=== PATIENT | male | born 1990 | race Caucasian/White ===

== ENCOUNTER 2018-02-26 17:19 | Emergency (ER) | payer BC ==
[~2018-02-26] VITALS: Ht 185.4 cm; Wt 120.0 kg
[2018-02-26 17:21] VITALS: BP 137/80; PULSE 65; RESP 16; TEMP 98.7; O2SAT 100
--- NOTE | 2018-02-26 18:35 | PD ---
HPI Chief Complaint: Abdominal Pain Time Seen by Provider: 18:18 Travel History International Travel<30 days: No Contact w/Intl Traveler<30days: No Traveled to known affect area: No History of Present Illness HPI This 27-year-old male says he been having some right upper quadrant pain for about 3 days. The pain is sometimes quite severe but at times it does not seem to bed. He was quite bad this morning but seems to be subsiding a bit he has woken him up at night. He cannot relate it to eating. There is been no vomiting or diarrhea. He says his appetite seems less than usual. Does not recall having this pain before. He has had some mild left mid abdominal pain off and on for the past few months. There is been no vomiting or diarrhea. He is on no medications. He is generally healthy. Comes from [facility] Social History Tobacco Use: No Allergies-Medications (Allergen,Severity, Reaction): Coded Allergies: No Known Allergies (Unverified , 02/26/18) Reported Meds & Prescriptions Reported Meds & Active Scripts Active Magnesium Citrate 100 Mg Tab 100 Mg PO DAILY PRN Miralax Powder (Polyethylene Glycol 3350 Powder) 17 Gm Powd 17 Gm PO DAILY Mix and dissolve one measuring cap-ful (17 grams) in water or juice. Review of Systems General / Constitutional: No: Fever, Chills Eyes: No: Diploplia, Blurred Vision HENT: No: Headaches, Vertigo Cardiovascular: No: Chest Pain or Discomfort, Palpitations Respiratory: No: Cough, Shortness of Breath Gastrointestinal: Positive: Abdominal Pain Genitourinary: No: Urgency, Frequency Musculoskeletal: No: Myalgias, Arthralgias Neurologic: No: Weakness, Dizziness Psychiatric: No: Anxiety, Depression Endocrine: No: Heat Intolerance Hematologic/Lymphatic: No: Easy Bruising Physical Exam Narrative GENERAL: Well-developed male SKIN: Focused skin assessment warm/dry. HEAD: Atraumatic. Normocephalic. EYES: Pupils equal and round. No scleral icterus. No injection or drainage. ENT: No nasal bleeding or discharge. Mucous membranes pink and moist. NECK: Trachea midline. No JVD. CARDIOVASCULAR: Regular rate and rhythm. No murmur appreciated. RESPIRATORY: No accessory muscle use. Clear to auscultation. Breath sounds equal bilaterally. GASTROINTESTINAL: Abdomen soft, there is right upper quadrant tenderness without guarding or rigidity, nondistended. Hepatic and splenic margins not palpable. MUSCULOSKELETAL: No obvious deformities. No clubbing. No cyanosis. No edema. NEUROLOGICAL: Awake and alert. No obvious cranial nerve deficits. Motor grossly within normal limits. Normal speech. PSYCHIATRIC: Appropriate mood and affect; insight and judgment normal. Data Data Last Documented VS Vital Signs Date Time Temp Pulse Resp B/P (MAP) Pulse Ox O2 Delivery O2 Flow Rate FiO2 02/26/18 22:02 78 16 132/78 (96) 100 02/26/18 20:37 Room Air 02/26/18 17:21 98.7 Orders Orders Complete Blood Count With Diff (02/26/18 18:28) Comprehensive Metabolic Panel (02/26/18 18:28) Urinalysis - C+S If Indicated (02/26/18 18:28) Us Abdomen Gallbladder (02/26/18 18:28) Famotidine Inj (Pepcid Inj) (02/26/18 20:00) Al-Mag Hy-Si 40-40-4 Mg/Ml Liq (Mag-Al P (02/26/18 20:00) Lidocaine 2% Viscous (Xylocaine 2% Visco (02/26/18 20:00) Abdomen, Flat & Upright (02/26/18 ) Ed Discharge Order (02/26/18 21:37) Labs Laboratory Tests Test 02/26/18 18:40 02/26/18 19:16 White Blood Count 9.2 TH/MM3 Red Blood Count 4.96 MIL/MM3 Hemoglobin 15.0 GM/DL Hematocrit 43.5 % Mean Corpuscular Volume 87.7 FL Mean Corpuscular Hemoglobin 30.3 PG Mean Corpuscular Hemoglobin Concent 34.5 % Red Cell Distribution Width 12.6 % Platelet Count 278 TH/MM3 Mean Platelet Volume 8.1 FL Neutrophils (%) (Auto) 67.6 % Lymphocytes (%) (Auto) 24.1 % Monocytes (%) (Auto) 5.9 % Eosinophils (%) (Auto) 1.2 % Basophils (%) (Auto) 1.2 % Neutrophils # (Auto) 6.3 TH/MM3 Lymphocytes # (Auto) 2.2 TH/MM3 Monocytes # (Auto) 0.5 TH/MM3 Eosinophils # (Auto) 0.1 TH/MM3 Basophils # (Auto) 0.1 TH/MM3 CBC Comment DIFF FINAL Differential Comment Blood Urea Nitrogen 15 MG/DL Creatinine 0.78 MG/DL Random Glucose 90 MG/DL Total Protein 8.3 GM/DL Albumin 4.4 GM/DL Calcium Level 9.4 MG/DL Alkaline Phosphatase 79 U/L Aspartate Amino Transf (AST/SGOT) 25 U/L Alanine Aminotransferase (ALT/SGPT) 46 U/L Total Bilirubin 0.6 MG/DL Sodium Level 140 MEQ/L Potassium Level 3.8 MEQ/L Chloride Level 106 MEQ/L Carbon Dioxide Level 28.0 MEQ/L Anion Gap 6 MEQ/L Estimat Glomerular Filtration Rate 121 ML/MIN Urine Color YELLOW Urine Turbidity CLEAR Urine pH 6.0 Urine Specific [place] 1.010 Urine Protein NEG mg/dL Urine Glucose (UA) NEG mg/dL Urine Ketones NEG mg/dL Urine Occult Blood NEG Urine Nitrite NEG Urine Bilirubin NEG Urine Urobilinogen 0.2 MG/DL Urine Leukocyte Esterase NEG Urine RBC 0-3 /hpf Urine WBC 0-2 /hpf Urine Bacteria NONE /hpf Microscopic Urinalysis Comment CULT NOT INDICATED MDM Medical Decision Making Medical Screen Exam Complete: Yes Emergency Medical Condition: Yes Medical Record Reviewed: Yes Differential Diagnosis Differential includes cholelithiasis, cholecystitis, nonspecific abdominal pain Narrative Course I have ordered blood work and an ultrasound of the right upper quadrant to assess the etiology of his pain. Diagnosis Primary Impression: Abdominal pain Scripts Magnesium Citrate (Magnesium Citrate) 100 Mg Tab 100 MG PO DAILY Y for CONSTIPATION, #6 TAB 0 Refills Prov: Cisco Barba MD 02/26/18 Polyethylene Glycol 3350 Powder (Miralax Powder) 17 Gm Powd 17 GM PO DAILY for Constipation, #1 CAN 0 Refills Mix and dissolve one measuring cap-ful (17 grams) in water or juice. Prov: Cisco Barba MD 02/26/18 John Najera MD February 26, 2018 18:35
[2018-02-26 18:51] LABS: AUTOMATED NEUTROPHIL # 6.3 TH/MM3 (1.8-7.7); BASOPHIL # 0.1 TH/MM3 (0-0.2); BASOPHIL % 1.2 % (0.0-2.0); EOSINOPHIL # 0.1 TH/MM3 (0-0.4); EOSINOPHIL % 1.2 % (0.0-4.0); HEMATOCRIT 43.5 % (39.0-51.0); LYMPH % 24.1 % (9.0-44.0); LYMPHOCYTE # 2.2 TH/MM3 (1.0-4.8); MEAN CELL VOLUME 87.7 FL (80.0-100.0); MEAN CORPUSCULAR HEMOGLOBIN 30.3 PG (27.0-34.0); MEAN CORPUSCULAR HGB CONC 34.5 % (32.0-36.0); MEAN PLATELET VOLUME 8.1 FL (7.0-11.0); MONO % 5.9 % (0.0-8.0); MONOCYTE # 0.5 TH/MM3 (0-0.9); NEUT % 67.6 % (16.0-70.0); PLATELET COUNT 278 TH/MM3 (150-450); RED BLOOD COUNT 4.96 MIL/MM3 (4.50-5.90); RED CELL DISTRIBUTION WIDTH 12.6 % (11.6-17.2); WHITE BLOOD COUNT 9.2 TH/MM3 (4.0-11.0)
[2018-02-26 19:00] LABS: CHLORIDE 106 MEQ/L (98-107); SODIUM (NA) 140 MEQ/L (136-145)
[2018-02-26 19:04] LABS: CALCIUM 9.4 MG/DL (8.5-10.1)
[2018-02-26 19:05] LABS: ALBUMIN 4.4 GM/DL (3.4-5.0); BLOOD UREA NITROGEN 15 MG/DL (7-18); GLUCOSE,RANDOM 90 MG/DL (74-106)
[2018-02-26 19:08] LABS: ALT (GPT) 46 U/L (12-78); AST (GOT) 25 U/L (15-37); CREATININE 0.78 MG/DL (0.60-1.30); GLOMERULAR FILTRATION RATE 121 ML/MIN (>89)
[2018-02-26 19:09] LABS: TOTAL BILIRUBIN ADULT 0.6 MG/DL (0.2-1.0); TOTAL PROTEIN 8.3 GM/DL (6.4-8.2)
[2018-02-26 19:10] VITALS: BP 135/73; PULSE 70; RESP 16; O2SAT 99
[2018-02-26 19:11] LABS: ALKALINE PHOSPHATASE 79 U/L (45-117)
[2018-02-26 19:23] LABS: BILIRUBIN, URINE NEG (NEG); BLOOD, URINE NEG (NEG); GLUCOSE,URINE NEG (NEG); KETONE, URINE NEG (NEG); NITRITE,URINE NEG (NEG); URINE COLOR YELLOW (YELLW/STRAW); URINE LEUKOCYTE ESTERASE NEG (NEG)
[2018-02-26 19:38] LABS: RBC, URINE 0-3 /hpf (0-3); WBC, URINE 0-2 /hpf (0-5)
[2018-02-26] MEDS ORDERED: FAMOTIDINE 20 MG/2 ML VIAL IV PUSH SCH (20:00)
[2018-02-26] MEDS ORDERED: ALUMINUM/MAGNESIUM/SIMETH 30 ML CUP PO ONE (20:00)
[2018-02-26] MEDS ORDERED: LIDOCAINE VISCOUS 2% SOLN 15 ML UDC SWISH-SWAL ONE (20:00)
--- NOTE | 2018-02-26 20:14 | RADRPT ---
EXAM DATE/TIME: 02/26/2018 19:46 [facility] COMPARISON: No previous studies available for comparison. INDICATIONS : Right upper quadrant pain. MEDICAL HISTORY : Abdominal pain. SURGICAL HISTORY : Vasectomy. ENCOUNTER: Initial ACUITY: 1 week PAIN SCORE: 4/10 LOCATION: Right upper quadrant MEASUREMENTS: LIVER: 17.5 cm length COMMON DUCT: 9 mm RIGHT KIDNEY: 11.7 x 4.8 x 4.6 cm FINDINGS: LIVER: Normal echotexture without focal lesion or ductal dilatation. COMMON DUCT: No intraluminal mass or stone visualized. GALLBLADDER: Contains no stones, demonstrates wall thickening without pericholecystic fluid. PANCREAS: Not visualized. RIGHT KIDNEY: No evidence of hydronephrosis, stone, or mass. CONCLUSION: 1. Mild gallbladder wall thickening. 2. Common bile duct appears prominent. 3. Pancreas not seen. Dimitri Maya MD on February 26, 2018 at 20:12 Board Certified Radiologist. This report was verified electronically.
[2018-02-26 20:37] VITALS: BP 137/67; PULSE 68; RESP 16; O2SAT 98
--- NOTE | 2018-02-26 20:56 | PD ---
Physical Exam Date Seen by Provider: February 26, 2018 Time Seen by Provider: 19:30 Narrative Patient is a 27-year-old male who has been having off and on lower left quadrant pain and today it seemed to be sharper left and lower abdomen. He did not take anything for the pain he comes to the ER and was seen by the prior attending who ordered an ultrasound and lab work. I give the patient Maalox viscous lidocaine and Pepcid IV he says it did not change his pain and he still has some vague left lower quadrant and and mild right lower quadrant tenderness. He denies constipation or diarrhea no vomiting no epigastric pain. The GI cocktail he said made him nauseous but it did not change his pain. Ultrasound shows some thickened gallbladder but he has no positive Felton sign and he has no sono Felton sign patient has no response to the medication. I will do an ultrasound and the ultrasound is mild thickening of gallbladder wall no gallstones seen his LFTs are completely normal his total bili is completely normal. I order upright and flat x-ray to rule out constipation and will discharge him his white count is normal he is no signs of diverticulitis no signs of pancreatitis no signs of appendicitis I explained what to look for if localized severe right lower quadrant pain it is worse he should return and at that point would be worth the risk benefit of a CAT scan and the radiation versus the diagnosis Data Data Last Documented VS Vital Signs Date Time Temp Pulse Resp B/P (MAP) Pulse Ox O2 Delivery O2 Flow Rate FiO2 02/26/18 22:02 78 16 132/78 (96) 100 02/26/18 20:37 Room Air 02/26/18 17:21 98.7 Orders Orders Complete Blood Count With Diff (02/26/18 18:28) Comprehensive Metabolic Panel (02/26/18 18:28) Urinalysis - C+S If Indicated (02/26/18 18:28) Us Abdomen Gallbladder (02/26/18 18:28) Famotidine Inj (Pepcid Inj) (02/26/18 20:00) Al-Mag Hy-Si 40-40-4 Mg/Ml Liq (Mag-Al P (02/26/18 20:00) Lidocaine 2% Viscous (Xylocaine 2% Visco (02/26/18 20:00) Abdomen, Flat & Upright (02/26/18 ) Ed Discharge Order (02/26/18 21:37) Labs Laboratory Tests Test 02/26/18 18:40 02/26/18 19:16 White Blood Count 9.2 TH/MM3 Red Blood Count 4.96 MIL/MM3 Hemoglobin 15.0 GM/DL Hematocrit 43.5 % Mean Corpuscular Volume 87.7 FL Mean Corpuscular Hemoglobin 30.3 PG Mean Corpuscular Hemoglobin Concent 34.5 % Red Cell Distribution Width 12.6 % Platelet Count 278 TH/MM3 Mean Platelet Volume 8.1 FL Neutrophils (%) (Auto) 67.6 % Lymphocytes (%) (Auto) 24.1 % Monocytes (%) (Auto) 5.9 % Eosinophils (%) (Auto) 1.2 % Basophils (%) (Auto) 1.2 % Neutrophils # (Auto) 6.3 TH/MM3 Lymphocytes # (Auto) 2.2 TH/MM3 Monocytes # (Auto) 0.5 TH/MM3 Eosinophils # (Auto) 0.1 TH/MM3 Basophils # (Auto) 0.1 TH/MM3 CBC Comment DIFF FINAL Differential Comment Blood Urea Nitrogen 15 MG/DL Creatinine 0.78 MG/DL Random Glucose 90 MG/DL Total Protein 8.3 GM/DL Albumin 4.4 GM/DL Calcium Level 9.4 MG/DL Alkaline Phosphatase 79 U/L Aspartate Amino Transf (AST/SGOT) 25 U/L Alanine Aminotransferase (ALT/SGPT) 46 U/L Total Bilirubin 0.6 MG/DL Sodium Level 140 MEQ/L Potassium Level 3.8 MEQ/L Chloride Level 106 MEQ/L Carbon Dioxide Level 28.0 MEQ/L Anion Gap 6 MEQ/L Estimat Glomerular Filtration Rate 121 ML/MIN Urine Color YELLOW Urine Turbidity CLEAR Urine pH 6.0 Urine Specific [place] 1.010 Urine Protein NEG mg/dL Urine Glucose (UA) NEG mg/dL Urine Ketones NEG mg/dL Urine Occult Blood NEG Urine Nitrite NEG Urine Bilirubin NEG Urine Urobilinogen 0.2 MG/DL Urine Leukocyte Esterase NEG Urine RBC 0-3 /hpf Urine WBC 0-2 /hpf Urine Bacteria NONE /hpf Microscopic Urinalysis Comment CULT NOT INDICATED MDM Supervised Visit with MAIK: No Differential Diagnosis Gastritis versus colitis versus cholecystitis versus pancreatitis versus mesenteric adenitis versus abdomen pain NOS Narrative Course Patient's ultrasound does not show any specific findings mild thickening gallbladder wall no gallstones LFTs are normal total bili is normal. Pepcid and Maalox does not alleviate his symptoms he is vague nonspecific lower abdominal pain. X-ray of right and flatplate done MILD SIGMOID CONSTIPATION discharged home with MiraLAX as well as Maalox Diagnosis Primary Impression: Abdominal pain Qualified Codes: R10.84 - Generalized abdominal pain Patient Instructions: Constipation (ED), General Instructions Scripts Magnesium Citrate (Magnesium Citrate) 100 Mg Tab 100 MG PO DAILY Y for CONSTIPATION, #6 TAB 0 Refills Prov: Cisco Barba MD 02/26/18 Polyethylene Glycol 3350 Powder (Miralax Powder) 17 Gm Powd 17 GM PO DAILY for Constipation, #1 CAN 0 Refills Mix and dissolve one measuring cap-ful (17 grams) in water or juice. Prov: Cisco Barba MD 02/26/18 Disposition: 01 DISCHARGE HOME Condition: Good Cisco Barba MD February 26, 2018 20:56
--- NOTE | 2018-02-26 21:19 | RADRPT ---
EXAM DATE/TIME: 02/26/2018 21:01 [facility] COMPARISON: No previous studies available for comparison. INDICATIONS : Lower abdominal pain for 3 days MEDICAL HISTORY : None. SURGICAL HISTORY : None. ENCOUNTER: Initial ACUITY: 3 days PAIN SCORE: 3/10 LOCATION: Bilateral lower quadrant FINDINGS: Supine and upright views of the abdomen were performed. The abdominal bowel gas pattern is normal. No air fluid levels are seen. No abnormal masses, calcifications, or organomegaly is seen. The visu alized lower lungs are clear. No evidence of free intraperitoneal gas. The osseous structures are u nremarkable. CONCLUSION: No acute abnormalities. Dimitri Maya MD on February 26, 2018 at 21:17 Board Certified Radiologist. This report was verified electronically.
[2018-02-26] MEDS ORDERED: MIRA3350 PO (21:39)
[2018-02-26] MEDS ORDERED: MAGN100T2 PO (21:39)
[2018-02-26 22:02] VITALS: BP 132/78
== END 2018-02-26 22:06 | disposition home or self-care (01) ==
LOC: PHED 17:19
DX: R10.84 Generalized abdominal pain (principal); K59.00 Constipation, unspecified
CPT/HCPCS: 74019; 76705; 80053; 81001; 85025; 96374